=== PATIENT | female | born 1995 | race Caucasian/White ===

== ENCOUNTER 2023-07-04 01:06 | Inpatient (IN) | payer MEDICAID ==
[~2023-07-04] VITALS: Ht 162.6 cm; Wt 50.0 kg
[~2023-07-04 01:06] MED LIST: DICL500C10 PO; HYDR-4383 PO
[2023-07-04 05:07] LABS: BASOPHILS % (AUTO) 0.4 % (0-1); EOSINOPHILS # (AUTO) 0.2 X10'3 (0-0.9); EOSINOPHILS % (AUTO) 6.7 % (0-6); HEMATOCRIT 42.2 % (35.0-45.0); LYMPHOCYTES # (AUTO) 1.8 X10'3 (1.1-4.8); LYMPHOCYTES % (AUTO) 48.4 % (21-51); MEAN CORPUSCULAR HEMOGLOBIN 32.2 PG (27.0-31.0); MEAN CORPUSCULAR HGB CONC 33.3 g/dL (33.0-36.5); MEAN CORPUSCULAR VOLUME 96.8 FL (78-98); MEAN PLATELET VOLUME 8.2 FL (7.4-10.4); MONOCYTES # (AUTO) 0.3 X10'3 (0-0.9); MONOCYTES % (AUTO) 8.5 % (2-12); NEUTROPHILS # (AUTO) 1.4 X10'3 (1.8-7.7); PLATELET COUNT 197 X10'3 (140-440); RED BLOOD COUNT 4.36 X10'6 (4.20-5.60); RED CELL DISTRIBUTION WIDTH 14.3 % (11.5-14.5); WHITE BLOOD COUNT 3.8 X10'3 (4.5-11.0)
[2023-07-04 05:28] LABS: ALBUMIN 4.2 G/DL (3.4-5.0); ANION GAP 9 (8-16); BLOOD UREA NITROGEN 9 MG/DL (7-18); CALCIUM 8.7 MG/DL (8.5-10.1); CHLORIDE 107 MMOL/L (99-107); CREATININE 0.82 MG/DL (0.40-0.90); GLUCOSE 78 MG/DL (70-104); MAGNESIUM 2.3 MG/DL (1.5-2.4); PHOSPHORUS 4.4 MG/DL (2.3-4.5); POTASSIUM 4.2 MMOL/L (3.5-5.1); SODIUM 142 MMOL/L (135-145); THYROID STIMULATING HORMONE 3.05 ulU/ml (0.34-4.50); TOTAL CARBON DIOXIDE 25.9 MMOL/L (24-32); eCRCL 81 ML/MIN; eGFR 84 ML/MIN
[2023-07-04 05:31] LABS: ETHANOL < 10 MG/DL (<10)
[2023-07-04] MEDS: LORazepam 1 MG tablet PO ONE ×2 (10:49→23:25)
[2023-07-04 12:26] LABS: URINE HCG NEGATIVE (NEG)
[2023-07-04 12:27] LABS: BILIRUBIN,URINE NEGATIVE (Neg); CLARITY,URINE SLIGHTLY CLOUDY (Clear); COLOR,URINE YELLOW (Yellow); GLUCOSE, URINE NEGATIVE (Neg); KETONES,URINE NEGATIVE (Neg); LEUKOCYTE ESTERASE ,URINE NEGATIVE (Neg); NITRITES, URINE NEGATIVE (Neg); OCCULT BLOOD,URINE NEGATIVE (Neg); PROTEIN,URINE NEGATIVE (Neg)
[2023-07-04 12:31] LABS: UA COLLECTION TYPE CLN CATCH MIDSTREAM
[2023-07-04 12:32] LABS: BACTERIA,URINE 1+ /HPF (Neg); MUCUS STRANDS FEW /LPF (Neg); SQUAMOUS EPITHELIAL CELL,UR MANY /LPF (FEW)
[2023-07-04 12:33] LABS: URINE AMPHETAMINE SCREEN NEGATIVE (Neg); URINE BARBITUATE SCREEN NEGATIVE (Neg); URINE BENZODIAZEPINES SCREEN NEGATIVE (Neg); URINE CANNABINOID SCREEN POSITIVE (Neg); URINE COCAINE SCREEN NEGATIVE (Neg); URINE METHADONE SCREEN NEGATIVE (Neg); URINE OPIATE SCREEN NEGATIVE (Neg); URINE PHENCYCLIDINE SCREEN NEGATIVE (Neg); WBC,URINE 0-4 /HPF (0-4)
[2023-07-04] MEDS: LORazepam 2 mg/ml vial IV ONE (15:03)
[2023-07-04] MEDS ORDERED: ondansetron/PF 4mg/2ml inj IV ONE (17:50)
[2023-07-05 01:24] LABS: GLUCOSE,CSF 51 MG/DL (40-75); TOTAL PROTEIN,CSF 56 MG/DL (15-45)
[2023-07-05 01:37] LABS: APPEARANCE,CSF CLEAR; CSF SUPERNATANT COLOR COLORLESS; CSF VOLUME 8 ML; TUBE# COUNTED 1
[2023-07-05 01:45] LABS: CSF RBC 1 /CU MM (0); CSF WBC CT 2 /CU MM (0-5)
[2023-07-05 01:46] LABS: APPEARANCE,CSF CLEAR; CSF RBC 1 /CU MM (0); CSF SUPERNATANT COLOR COLORLESS; CSF VOLUME 8 ML; CSF WBC CT 1 /CU MM (0-5); TUBE# COUNTED 4
[2023-07-05] MEDS: LORazepam 2 mg/ml vial IV ONE (18:16)
[2023-07-06] MEDS ORDERED: CLON1TAB12 PO (02:06)
[2023-07-06] MEDS ORDERED: CLON0.1T2 PO (02:06)
[2023-07-06] MEDS ORDERED: LURA40TA4 PO (02:06)
[2023-07-06] MEDS: LORazepam 2 mg/ml vial IV ONE (02:35)
[2023-07-06] MEDS: PIGGYBACK IV SCH (13:34)
[2023-07-06] MEDS: IMMUNE GLOBULIN IV SCH (13:34)
[2023-07-06 16:22] VITALS: PULSE 66; RESP 18; O2SAT 98
[2023-07-06] MEDS ORDERED: ondansetron/PF 4mg/2ml inj IV PRN (17:25)
[2023-07-06] MEDS ORDERED: morphine 2 MG/ML inj. syringe IV PRN (17:25)
[2023-07-06] MEDS ORDERED: mag hydrox/Alum hydrox/simeth 30ml oral suspension PO PRN (17:25)
[2023-07-06] MEDS ORDERED: acetaminophen 325mg tablet PO PRN (17:25)
[2023-07-06 19:20] VITALS: BP 105/65; PULSE 66; RESP 14; TEMP 98.6; O2SAT 100
[2023-07-06 20:00] VITALS: RESP 14; O2SAT 98
[2023-07-06] MEDS: clonazePAM 1mg tablet PO PRN (20:03)
[2023-07-06] MEDS: docusate sod 100mg capsule PO SCH (20:03)
[2023-07-06 20:22] VITALS: PULSE 70; RESP 16; O2SAT 100
[2023-07-06 22:00] VITALS: BP 93/58; PULSE 70; RESP 14; TEMP 98.4; O2SAT 98
[2023-07-07] VITALS (7 sets, daily range): BP systolic 100–115; BP diastolic 58–66; PULSE 69–82; RESP 14–18; TEMP 97.4–99.3; O2SAT 98–99
[2023-07-07 06:44] LABS: ALANINE AMINOTRANSFERASE 28 U/L (12-78); ALBUMIN 3.7 G/DL (3.4-5.0); ALBUMIN/GLOBULIN RATIO 0.8 (1.1-1.5); ALKALINE PHOSPHATASE 56 IU/L (46-116); ANION GAP 8 (8-16); ASPARTATE AMINO TRANSFERASE 11 U/L (10-37); BILIRUBIN,TOTAL 0.6 MG/DL (0.1-1.0); BLOOD UREA NITROGEN 16 MG/DL (7-18); BUN/CREATININE RATIO 16.5 (10.0-20.0); CALCIUM 8.6 MG/DL (8.5-10.1); CHLORIDE 107 MMOL/L (99-107); CREATININE 0.97 MG/DL (0.40-0.90); GLUCOSE 83 MG/DL (70-104); POTASSIUM 3.9 MMOL/L (3.5-5.1); SODIUM 142 MMOL/L (135-145); TOTAL CARBON DIOXIDE 26.7 MMOL/L (24-32); TOTAL PROTEIN 8.2 G/DL (6.4-8.2); eCRCL 69 ML/MIN; eGFR 69 ML/MIN
[2023-07-07 06:46] LABS: BASOPHILS % (AUTO) 0.2 % (0-1); EOSINOPHILS # (AUTO) 0.3 X10'3 (0-0.9); EOSINOPHILS % (AUTO) 11.6 % (0-6); HEMATOCRIT 40.9 % (35.0-45.0); HEMOGLOBIN 13.9 g/dl (12.0-16.0); LYMPHOCYTES # (AUTO) 0.9 X10'3 (1.1-4.8); LYMPHOCYTES % (AUTO) 31.7 % (21-51); MEAN CORPUSCULAR HEMOGLOBIN 32.7 PG (27.0-31.0); MEAN CORPUSCULAR HGB CONC 33.9 g/dL (33.0-36.5); MEAN CORPUSCULAR VOLUME 96.6 FL (78-98); MEAN PLATELET VOLUME 8.3 FL (7.4-10.4); MONOCYTES # (AUTO) 0.4 X10'3 (0-0.9); MONOCYTES % (AUTO) 13.4 % (2-12); NEUTROPHILS # (AUTO) 1.3 X10'3 (1.8-7.7); NEUTROPHILS % (AUTO) 43.1 % (42-75); PLATELET COUNT 180 X10'3 (140-440); RED BLOOD COUNT 4.24 X10'6 (4.20-5.60); RED CELL DISTRIBUTION WIDTH 14.6 % (11.5-14.5)
[2023-07-07] MEDS ORDERED: lurasidone 20mg tablet PO SCH (08:00)
[2023-07-07 08:45] LABS: PLATELET ESTIMATE NORMAL; TOTAL CELLS COUNTED 100
[2023-07-08] VITALS (9 sets, daily range): BP systolic 91–109; BP diastolic 42–70; PULSE 56–85; RESP 13–17; TEMP 98.1–99.3; O2SAT 96–98
[2023-07-08 04:05] LABS: BASOPHILS % (AUTO) 0.3 % (0-1); EOSINOPHILS # (AUTO) 0.4 X10'3 (0-0.9); EOSINOPHILS % (AUTO) 13.4 % (0-6); HEMATOCRIT 39.4 % (35.0-45.0); HEMOGLOBIN 13.6 g/dl (12.0-16.0); LYMPHOCYTES # (AUTO) 0.9 X10'3 (1.1-4.8); LYMPHOCYTES % (AUTO) 34.3 % (21-51); MEAN CORPUSCULAR HGB CONC 34.5 g/dL (33.0-36.5); MEAN CORPUSCULAR VOLUME 95.8 FL (78-98); MONOCYTES # (AUTO) 0.4 X10'3 (0-0.9); MONOCYTES % (AUTO) 13.4 % (2-12); NEUTROPHILS % (AUTO) 38.6 % (42-75); PLATELET COUNT 175 X10'3 (140-440); RED BLOOD COUNT 4.11 X10'6 (4.20-5.60); RED CELL DISTRIBUTION WIDTH 14.7 % (11.5-14.5); WHITE BLOOD COUNT 2.7 X10'3 (4.5-11.0)
[2023-07-08 04:20] LABS: ALANINE AMINOTRANSFERASE 32 U/L (12-78); ALBUMIN 3.5 G/DL (3.4-5.0); ALBUMIN/GLOBULIN RATIO 0.6 (1.1-1.5); ALKALINE PHOSPHATASE 55 IU/L (46-116); ANION GAP 10 (8-16); ASPARTATE AMINO TRANSFERASE 19 U/L (10-37); BILIRUBIN,TOTAL 0.8 MG/DL (0.1-1.0); BLOOD UREA NITROGEN 17 MG/DL (7-18); BUN/CREATININE RATIO 16.8 (10.0-20.0); CALCIUM 8.8 MG/DL (8.5-10.1); CHLORIDE 106 MMOL/L (99-107); CREATININE 1.01 MG/DL (0.40-0.90); GLUCOSE 94 MG/DL (70-104); SODIUM 142 MMOL/L (135-145); TOTAL CARBON DIOXIDE 26.5 MMOL/L (24-32); eCRCL 66 ML/MIN; eGFR 66 ML/MIN
[2023-07-08] MEDS: acetaminophen 325mg tablet PO PRN (10:26)
[2023-07-08] MEDS: magnesium hydroxide 30ml (MOM) UD suspension PO PRN (21:52)
[2023-07-09] VITALS (8 sets, daily range): BP systolic 82–132; BP diastolic 48–74; PULSE 52–98; RESP 12–18; TEMP 96.4–99.3; O2SAT 94–100
[2023-07-09] MEDS: morphine 2 MG/ML inj. syringe IV PRN (03:48)
[2023-07-09 06:03] LABS: BASOPHILS % (AUTO) 0.5 % (0-1); EOSINOPHILS # (AUTO) 0.4 X10'3 (0-0.9); EOSINOPHILS % (AUTO) 15.4 % (0-6); HEMATOCRIT 34.4 % (35.0-45.0); HEMOGLOBIN 12.3 g/dl (12.0-16.0); LYMPHOCYTES # (AUTO) 1.1 X10'3 (1.1-4.8); LYMPHOCYTES % (AUTO) 41.3 % (21-51); MEAN CORPUSCULAR HEMOGLOBIN 34.2 PG (27.0-31.0); MEAN CORPUSCULAR HGB CONC 35.7 g/dL (33.0-36.5); MEAN CORPUSCULAR VOLUME 95.9 FL (78-98); MEAN PLATELET VOLUME 8.1 FL (7.4-10.4); MONOCYTES # (AUTO) 0.4 X10'3 (0-0.9); MONOCYTES % (AUTO) 16.6 % (2-12); NEUTROPHILS # (AUTO) 0.7 X10'3 (1.8-7.7); NEUTROPHILS % (AUTO) 26.2 % (42-75); PLATELET COUNT 183 X10'3 (140-440); RED BLOOD COUNT 3.59 X10'6 (4.20-5.60); RED CELL DISTRIBUTION WIDTH 14.2 % (11.5-14.5); WHITE BLOOD COUNT 2.6 X10'3 (4.5-11.0)
[2023-07-09 06:18] LABS: ALANINE AMINOTRANSFERASE 33 U/L (12-78); ALBUMIN 3.2 G/DL (3.4-5.0); ALBUMIN/GLOBULIN RATIO 0.5 (1.1-1.5); ALKALINE PHOSPHATASE 51 IU/L (46-116); ANION GAP 8 (8-16); ASPARTATE AMINO TRANSFERASE 21 U/L (10-37); BILIRUBIN,TOTAL 1.2 MG/DL (0.1-1.0); BLOOD UREA NITROGEN 16 MG/DL (7-18); BUN/CREATININE RATIO 22.5 (10.0-20.0); CALCIUM 8.8 MG/DL (8.5-10.1); CHLORIDE 104 MMOL/L (99-107); CREATININE 0.71 MG/DL (0.40-0.90); MAGNESIUM 2.3 MG/DL (1.5-2.4); POTASSIUM 3.8 MMOL/L (3.5-5.1); SODIUM 137 MMOL/L (135-145); TOTAL CARBON DIOXIDE 25.2 MMOL/L (24-32); TOTAL PROTEIN 9.3 G/DL (6.4-8.2); eCRCL 94 ML/MIN; eGFR > 90 ML/MIN
[2023-07-09 06:19] LABS: GLUCOSE 94 MG/DL (70-104)
[2023-07-09 10:12] LABS: TOTAL CELLS COUNTED 100
[2023-07-09 10:13] LABS: LARGE PLATELETS FEW; LYMPHOCYTES % (MANUAL) 41 % (21-51); PLATELET ESTIMATE NORMAL
[2023-07-10] VITALS (7 sets, daily range): BP systolic 87–120; BP diastolic 48–74; PULSE 53–66; RESP 13–16; TEMP 97.5–97.9; O2SAT 98–100
[2023-07-10 06:08] LABS: HEMOGLOBIN 11.7 g/dl (12.0-16.0); MEAN PLATELET VOLUME 8.1 FL (7.4-10.4); WHITE BLOOD COUNT 2.9 X10'3 (4.5-11.0)
[2023-07-10 06:12] LABS: BASOPHILS % (AUTO) 0.5 % (0-1); EOSINOPHILS # (AUTO) 0.4 X10'3 (0-0.9); EOSINOPHILS % (AUTO) 14.9 % (0-6); HEMATOCRIT 32.1 % (35.0-45.0); LYMPHOCYTES # (AUTO) 1.1 X10'3 (1.1-4.8); LYMPHOCYTES % (AUTO) 37.3 % (21-51); MEAN CORPUSCULAR HEMOGLOBIN 35.5 PG (27.0-31.0); MEAN CORPUSCULAR HGB CONC 36.6 g/dL (33.0-36.5); MONOCYTES # (AUTO) 0.4 X10'3 (0-0.9); MONOCYTES % (AUTO) 12.6 % (2-12); NEUTROPHILS % (AUTO) 34.7 % (42-75); PLATELET COUNT 161 X10'3 (140-440); RED CELL DISTRIBUTION WIDTH 14.4 % (11.5-14.5)
[2023-07-10 06:28] LABS: ALANINE AMINOTRANSFERASE 26 U/L (12-78); ALBUMIN 2.9 G/DL (3.4-5.0); ALBUMIN/GLOBULIN RATIO 0.4 (1.1-1.5); ALKALINE PHOSPHATASE 51 IU/L (46-116); ANION GAP 9 (8-16); ASPARTATE AMINO TRANSFERASE 16 U/L (10-37); BILIRUBIN,TOTAL 1.3 MG/DL (0.1-1.0); BLOOD UREA NITROGEN 17 MG/DL (7-18); CALCIUM 8.7 MG/DL (8.5-10.1); CHLORIDE 107 MMOL/L (99-107); CREATINE KINASE 36 U/L (26-192); CREATININE 0.81 MG/DL (0.40-0.90); LACTATE DEHYDROGENASE 147 U/L (81-234); POTASSIUM 3.5 MMOL/L (3.5-5.1); SODIUM 140 MMOL/L (135-145); TOTAL CARBON DIOXIDE 24.5 MMOL/L (24-32); TOTAL PROTEIN 9.5 G/DL (6.4-8.2); eCRCL 82 ML/MIN; eGFR 85 ML/MIN
[2023-07-10 06:35] LABS: GLUCOSE 97 MG/DL (70-104)
[2023-07-10 07:51] LABS: NUCLEATED RED BLOOD CELLS 20 /100WBC (0-0); TOTAL CELLS COUNTED 100
[2023-07-10 07:52] LABS: PLATELET ESTIMATE NORMAL
[2023-07-10] MEDS ORDERED: GABA300C PO (13:38)
[2023-07-10] MEDS: gabapentin 300mg capsule PO SCH (14:04)
[2023-07-10 17:28] LABS: IMMUNOGLOBULIN G, QN CSF 2.3 mg/dL (0.0-6.7)
[2023-07-11 11:28] LABS: HBSAG SCREEN Negative (Negative); HEP B CORE AB, IGM Negative (Negative); HEPATITIS C VIRUS ANTIBODY Non Reactive (Non Reactive)
[2023-07-12 19:40] LABS: HBV IU/mL HBV DNA not detected IU/mL (.)
== END 2023-07-10 20:10 | disposition home health service (06) | DRG 49 ==
LOC: ER 01:06 → ED HOLD 07-06 17:39 → CANBEDREQ 07-06 17:52 → EDBEDREQ 07-06 18:05 → SUR 3N 07-06 19:05
PROVIDERS: ADMIT Family Medicine; ATTEND Family Medicine
PROC: 009U3ZX Drainage of Spinal Canal, Percutaneous Approach, Diagnostic (ICD-10-PCS; principal; 2023-07-05)
PROC: 30233S1 Transfusion of Nonautologous Globulin into Peripheral Vein, Percutaneous Approach (ICD-10-PCS; 2023-07-06)
DX: G61.0 Guillain-Barre syndrome (principal); D70.2 Other drug-induced agranulocytosis; F20.9 Schizophrenia, unspecified; F41.9 Anxiety disorder, unspecified; F31.9 Bipolar disorder, unspecified; F12.10 Cannabis abuse, uncomplicated; F10.10 Alcohol abuse, uncomplicated; F17.210 Nicotine dependence, cigarettes, uncomplicated; J34.1 Cyst and mucocele of nose and nasal sinus; T50.Z15A Adverse effect of immunoglobulin, initial encounter; Y92.238 Other place in hospital as the place of occurrence of the external cause; G62.9 Polyneuropathy, unspecified
CPT/HCPCS: 36415; 70551; 72141; 72146; 72148; 80048; 80053; 80305; 80320; 81001; 81025; 82040; 82042; 82550; 82607; 82784; 82945; 83036; 83615; 83735; 83916; 84100; 84157; 84443; 85007; 85025; 86592; 86705; 86803; 87015; 87070; 87081; 87340; 87517; 87522; 89051; 94760; 97116; 97163; 97530; 97535; 99285; G0378; J1459; J2060; J2270